=== PATIENT | female | born 1955 | race Caucasian/White ===

== ENCOUNTER 2023-12-24 11:47 | Emergency (ER) | payer MEDICARE, SELFPAY ==
[2023-12-24 11:51] VITALS: BP 131/62; PULSE 68; RESP 18; TEMP 36.6; O2SAT 99; BMI 24.1
--- NOTE | 2023-12-24 12:03 | DI.CT.S_ITS ---
PROCEDURE: CT CERVICAL SPINE WO CON INDICATIONS: fall/pain TECHNIQUE: Noncontrast 3 mm thick sections acquired from the skull base to the T4 level. Sagittal and coronal reformats were then constructed. For radiation dose reduction, the following was used: automated exposure control, adjustment of mA and/or kV according to patient size. COMPARISON: None. FINDINGS: Image quality: Excellent. Bones: No fractures or dislocations. Visualized superior ribs are intact. Soft tissues: Prevertebral soft tissues are normal in thickness. No paravertebral hematomas. No apical pneumothoraces. IMPRESSION: No displaced fracture or traumatic subluxation. Dictated by: Roslyn Arrieta M.D. on 12/24/2023 at 12:43 Approved by: Roslyn Arrieta M.D. on 12/24/2023 at 12:44
--- NOTE | 2023-12-24 12:03 | DI.CT.S_ITS ---
PROCEDURE: CT HEAD/BRAIN WO CON INDICATIONS: fall/pain TECHNIQUE: Noncontrast 4.5 mm thick angled axial sections acquired from the foramen magnum to the vertex, with coronal and sagittal reformats. For radiation dose reduction, the following was used: automated exposure control, adjustment of mA and/or kV according to patient size. COMPARISON: None. FINDINGS: Image quality: Diagnostic. CSF spaces: Basal cisterns are patent. No extra-axial fluid collections. Ventricles are normal in size and shape. Brain: No midline shift. No intracranial masses or hemorrhage. Garcia-white matter interface is normal. Skull and face: Calvarium and visualized facial bones are intact, without suspicious lesions. Sinuses: Visualized sinuses demonstrate small mucous retention cyst in the right maxillary sinus. IMPRESSION: No acute intracranial pathology. Dictated by: Roslyn Arrieta M.D. on 12/24/2023 at 12:42 Approved by: Roslyn Arrieta M.D. on 12/24/2023 at 12:43
--- NOTE | 2023-12-24 12:03 | DI.CT.S_ITS ---
PROCEDURE: CT FACIAL BONES WO CON INDICATIONS: fall/pain TECHNIQUE: Noncontrast 2.5 mm thick axial images acquired from the mandible through the frontal sinuses, with coronal and sagittal reformatting. For radiation dose reduction, the following was used: automated exposure control, adjustment of mA and/or kV according to patient size. COMPARISON: [facility], CT, CT HEAD/BRAIN WO CON, 12/24/2023, 12:17. FINDINGS: Image quality: Excellent. Bones and teeth: Orbital puckett are intact. Sinus puckett show no fracture or deformity. Nasal bones and septum are intact. Visualized portions of the mandible demonstrate no fractures or subluxation. Zygomatic arches are intact. Pterygoid plates are intact. Visualized portions of the skull base and auditory canals are intact. Sinuses: Paranasal sinuses are aerated, without fluid levels. No mucous retention cyst is present in the left maxillary sinus. Soft tissues: No edema, masses, or fluid collections. No enlarged lymph nodes. No soft tissue lacerations or debris. Vascular: Visualized vascular structures appear normal in the absence of contrast. Bony vascular foramina and canals are intact. IMPRESSION: No visualized fracture. Dictated by: Roslyn Arrieta M.D. on 12/24/2023 at 12:40 Approved by: Roslyn Arrieta M.D. on 12/24/2023 at 12:42
--- NOTE | 2023-12-24 12:06 | ED_ITS ---
HPI - Fall <Robin Leblanc PA-C - Last Filed: 12/24/23 13:54> General Chief Complaint: Fall Stated Complaint: Fall, head laceration, no blood thinners Time Seen by Provider: 12/24/23 12:03 History of Present Illness HPI Narrative: This is a 68-year-old female presenting to the emergency department due to a mechanical ground level fall. Not on blood thinners. States that she was walking in the dark when she tripped landing on her knees, wrists, hitting her head. She was unsure if she lost conscious but states she was ?out of it? for a few seconds. Tetanus is up-to-date. Has a wound to the forehead. Denies any nausea, vomiting, dizziness, speech changes. Also complaining of neck and lower back pain. History of left knee surgery 30 years ago. No other medical history. Related Data Allergies Allergy/AdvReac Type Severity Reaction Status Date / Time hydrochlorothiazide Allergy Rash Verified 12/24/23 12:20 hydroxychloroquine Allergy Verified 12/24/23 12:20 [From Plaquenil] lisinopril Allergy Swelling Verified 12/24/23 12:20 of Lip/Tongue/Throat meperidine [From Demerol] Allergy Vomiting Verified 12/24/23 12:20 oxycodone Allergy Vomiting Verified 12/24/23 12:20 Penicillins Allergy Verified 12/24/23 12:20 Review of Systems <Robin Leblanc PA-C - Last Filed: 12/24/23 13:54> Review of Systems Narrative: GENERAL: Denies chills, fatigue, malaise, fever, sweats. HEENT: Denies sinus pain, ear pain, sore throat, difficulty swallowing, dizziness. RESPIRATORY: Denies dyspnea, cough, wheezing, hemoptysis, sputum. CARDIOVASCULAR: Denies chest pain, palpitations, orthopnea, edema, GASTROINTESTINAL: Denies nausea, vomiting, abdominal pain, diarrhea, constipation, melena. : Denies dysuria, frequency, incontinence, hematuria, urinary retention. MUSCULOSKELETAL: Reports bilateral knee, bilateral wrist, right elbow, lower back, neck pain. SKIN: Denies rash, skin lesions, or other NEUROLOGIC: Denies weakness, headache, numbness, change in speech, confusion, seizures, incoordination. PSYCHIATRIC: No concerning psychosocial issues. 12 point review of systems is negative except for those stated above Patient History <Robin Leblanc PA-C - Last Filed: 12/24/23 13:54> Social History Smoking Status: Never smoker Smoking Status: Never smoker alcohol intake frequency: holidays/special occasions only Substance Use Type: does not use Exam <Robin Leblanc PA-C - Last Filed: 12/24/23 13:54> Narrative Exam Narrative: GENERAL: Well-developed patient, in mild distress. HEAD: Atraumatic. Normocephalic. EYES: Pupils equal round and reactive. Extraocular motions intact. No scleral icterus. No injection or drainage. ENT: Nose without bleeding, purulent drainage. Throat without erythema, tonsillar hypertrophy or exudate. Airway patent. NECK: Trachea midline. Some C-spine tenderness noted. EXTREMITIES: Mild tenderness to palpation to the bilateral knees, bilateral wrists, right elbow. NEURO: AOx3. Cranial nerves 2-12 intact SKIN: One approximately 5 cm long laceration the midline of the forehead. No active bleeding. Skin is well approximated. No foreign bodies or debris. 1 cm laceration perpendicular to that, no foreign bodies or debris. Back: Some tenderness to palpation to the lumbar paraspinals, no midline tenderness to palpation. Initial Vital Signs Initial Vital Signs: Vital Signs Temperature 98 F 12/24/23 11:51 Pulse Rate 68 12/24/23 11:51 Respiratory Rate 18 12/24/23 11:51 Blood Pressure 131/62 12/24/23 11:51 Pulse Oximetry 99 12/24/23 11:51 Oxygen Delivery Method Room Air 12/24/23 11:51 <Barbie Hatfield MD - Last Filed: 12/24/23 18:40> Initial Vital Signs Initial Vital Signs: Vital Signs Temperature 98 F 12/24/23 11:51 Pulse Rate 68 12/24/23 11:51 Respiratory Rate 18 12/24/23 11:51 Blood Pressure 131/62 12/24/23 11:51 Pulse Oximetry 99 12/24/23 11:51 Oxygen Delivery Method Room Air 12/24/23 11:51 Procedures <Robin Leblanc PA-C - Last Filed: 12/24/23 13:54> Laceration Repair Laceration 1: Time of procedure: 13:50 Site: other (Forehead ) Size (cm): 5 Description: linear Depth: simple, single layer Local Anesthetic: lidocaine 1% and with epi Amount of anesthesia used (mL): 5 Pre-repair: irrigated extensively Skin layer closed with: nylon Skin layer suture size: 6-0 Number of sutures: 6 Technique: simple, interrupted Laceration 2: Time of procedure: 13:51 Site: other (Forehead) Size (cm): 1 Description: linear Depth: simple, single layer Local Anesthetic: lidocaine 1% and with epi Amount of anesthesia used (mL): 1 Pre-repair: irrigated extensively Skin layer closed with: nylon Skin layer suture size: 6-0 Number of sutures: 2 Technique: simple, interrupted Course <Robin Leblanc PA-C - Last Filed: 12/24/23 13:54> Orders Ordered: ED Orders 12/24/23 12:03 CT cervical spine wo con Stat CT facial bones wo con Stat CT head/brain wo con Stat 12/24/23 12:04 XR elbow RT min 3V Stat XR wrist LT min 3V Stat XR wrist RT min 3V Stat 12/24/23 12:18 XR knee LT 3V Stat XR knee RT 3V Stat Discontinued Medications Acetaminophen (Acetaminophen 325 Mg Tablet) 975 mg PO NOW ONE Stop: 12/24/23 14:04 Last Admin: 12/24/23 14:07 Dose: 975 mg Documented By: JEYSON Lidocaine/Epinephrine (Lidocaine 1% W/Epi) 4 ml INJ INTRA-OP ONE Stop: 12/24/23 12:49 Last Admin: 12/24/23 12:58 Dose: 4 ml Documented By: JEYSON Vital Signs Vital signs: Vital Signs - 8 hr 12/24/23 11:51 12/24/23 14:14 Temperature 98 F Pulse Rate 68 60 Respiratory Rate 18 14 Blood Pressure 131/62 117/53 L Pulse Oximetry 99 100 Oxygen Delivery Method Room Air Room Air <Barbie Hatfield MD - Last Filed: 12/24/23 18:40> Orders Ordered: ED Orders 12/24/23 12:03 CT cervical spine wo con Stat CT facial bones wo con Stat CT head/brain wo con Stat 12/24/23 12:04 XR elbow RT min 3V Stat XR wrist LT min 3V Stat XR wrist RT min 3V Stat 12/24/23 12:18 XR knee LT 3V Stat XR knee RT 3V Stat Discontinued Medications Acetaminophen (Acetaminophen 325 Mg Tablet) 975 mg PO NOW ONE Stop: 12/24/23 14:04 Last Admin: 12/24/23 14:07 Dose: 975 mg Documented By: JEYSON Lidocaine/Epinephrine (Lidocaine 1% W/Epi) 4 ml INJ INTRA-OP ONE Stop: 12/24/23 12:49 Last Admin: 12/24/23 12:58 Dose: 4 ml Documented By: JEYSON Vital Signs Vital signs: Vital Signs - 8 hr 12/24/23 11:51 12/24/23 14:14 Temperature 98 F Pulse Rate 68 60 Respiratory Rate 18 14 Blood Pressure 131/62 117/53 L Pulse Oximetry 99 100 Oxygen Delivery Method Room Air Room Air MDM - Fall <Robin Leblanc PA-C - Last Filed: 12/24/23 13:54> Imaging Data CT scan - head: Radiologist's Impression: [address] [address] [address] Scan Report Signed Patient: Stephanie Carver MR#: [id number] : 1955 Acct:[id number] Age/Sex: 68 / F Date of Service: 12/24/23 Loc: ED Accession Number: [id number] Procedure: CT head/brain wo con Ordering Provider: Robin Leblanc P.A-C PROCEDURE: CT HEAD/BRAIN WO CON INDICATIONS: fall/pain TECHNIQUE: Noncontrast 4.5 mm thick angled axial sections acquired from the foramen magnum to the vertex, with coronal and sagittal reformats. For radiation dose reduction, the following was used: automated exposure control, adjustment of mA and/or kV according to patient size. COMPARISON: None. FINDINGS: Image quality: Diagnostic. CSF spaces: Basal cisterns are patent. No extra-axial fluid collections. Ventricles are normal in size and shape. Brain: No midline shift. No intracranial masses or hemorrhage. Garcia-white matter interface is normal. Skull and face: Calvarium and visualized facial bones are intact, without suspicious lesions. Sinuses: Visualized sinuses demonstrate small mucous retention cyst in the right maxillary sinus. IMPRESSION: No acute intracranial pathology. Dictated by: Roslyn Arrieta M.D. on 12/24/2023 at 12:42 Approved by: Roslyn Arrieta M.D. on 12/24/2023 at 12:[address]: Radiologist's Impression: [address] [address] [address] Scan Report Signed Patient: Stephanie Carver MR#: [id number] : 1955 Acct:[id number] Age/Sex: 68 / F Date of Service: 12/24/23 Loc: ED Accession Number: [id number] Procedure: CT facial bones wo con Ordering Provider: Robin Leblanc P.A-C PROCEDURE: CT FACIAL BONES WO CON INDICATIONS: fall/pain TECHNIQUE: Noncontrast 2.5 mm thick axial images acquired from the mandible through the frontal sinuses, with coronal and sagittal reformatting. For radiation dose reduction, the following was used: automated exposure control, adjustment of mA and/or kV according to patient size. COMPARISON: [facility], CT, CT HEAD/BRAIN WO CON, 12/24/2023, 12:17. FINDINGS: Image quality: Excellent. Bones and teeth: Orbital puckett are intact. Sinus puckett show no fracture or deformity. Nasal bones and septum are intact. Visualized portions of the mandible demonstrate no fractures or subluxation. Zygomatic arches are intact. Pterygoid plates are intact. Visualized portions of the skull base and auditory canals are intact. Sinuses: Paranasal sinuses are aerated, without fluid levels. No mucous retention cyst is present in the left maxillary sinus. Soft tissues: No edema, masses, or fluid collections. No enlarged lymph nodes. No soft tissue lacerations or debris. Vascular: Visualized vascular structures appear normal in the absence of contrast. Bony vascular foramina and canals are intact. IMPRESSION: No visualized fracture. Dictated by: Roslyn Arrieta M.D. on 12/24/2023 at 12:40 Approved by: Roslyn Arrieta M.D. on 12/24/2023 at 12:42 CT - cervical spine: Radiologist's Impression: [address] [address] [address] Scan Report Signed Patient: Stephanie Carver MR#: [id number] : 1955 Acct:[id number] Age/Sex: 68 / F Date of Service: 12/24/23 Loc: ED Accession Number: [id number] Procedure: CT cervical spine wo con Ordering Provider: Robin Leblanc P.A-C PROCEDURE: CT CERVICAL SPINE WO CON INDICATIONS: fall/pain TECHNIQUE: Noncontrast 3 mm thick sections acquired from the skull base to the T4 level. Sagittal and coronal reformats were then constructed. For radiation dose reduction, the following was used: automated exposure control, adjustment of mA and/or kV according to patient size. COMPARISON: None. FINDINGS: Image quality: Excellent. Bones: No fractures or dislocations. Visualized superior ribs are intact. Soft tissues: Prevertebral soft tissues are normal in thickness. No paravertebral hematomas. No apical pneumothoraces. IMPRESSION: No displaced fracture or traumatic subluxation. Dictated by: Roslyn Arrieta M.D. on 12/24/2023 at 12:43 Approved by: Roslyn Arrieta M.D. on 12/24/2023 at 12:44 Elbow XR : Radiologist's Impression: [address] [address] XRay Report Signed Patient: Stephanie Carver MR#: [id number] : 1955 Acct:[id number] Age/Sex: 68 / F Date of Service: 12/24/23 Loc: ED Accession Number: [id number] Procedure: XR elbow RT min 3V Ordering Provider: Robin Leblanc P.A-C PROCEDURE: XR ELBOW RT MIN 3V INDICATIONS: fall/pain TECHNIQUE: 3 views of the elbow were acquired. COMPARISON: None. FINDINGS: Bones: No fractures or dislocations. No suspicious bony lesions. Soft tissues: Minimal elbow joint effusion. No suspicious soft tissue calcifications. IMPRESSION: Minimal effusion. No visualized acute fracture or dislocation. However, if clinical concern and/or pain persist, short interval imaging followup in 7-10 days is recommended, as occult injury cannot be definitively excluded. Dictated by: Roslyn Arrieta M.D. on 12/24/2023 at 12:52 Approved by: Roslyn Arrieta M.D. on 12/24/2023 at 12:52 L knee XR : Radiologist's Impression: [address] [address] XRay Report Signed Patient: Stephanie Carver MR#: [id number] : 1955 Acct:[id number] Age/Sex: 68 / F Date of Service: 12/24/23 Loc: ED Accession Number: [id number] Procedure: XR knee LT 3V Ordering Provider: Robin Leblanc P.A-C PROCEDURE: XR KNEE LT 3V INDICATIONS: L knee pain TECHNIQUE: 3 views of the knee were acquired. COMPARISON: None. FINDINGS: Bones: No fractures or dislocations. No suspicious bony lesions. Tricompartmental arthritic change. Soft tissues: No joint effusion. No suspicious soft tissue calcifications. IMPRESSION: No visualized acute fracture or dislocation. However, if clinical concern and/or pain persist, short interval imaging followup in 7-10 days is recommended, as occult injury cannot be definitively excluded. Dictated by: Roslyn Arrieta M.D. on 12/24/2023 at 13:05 Approved by: Roslyn Arrieta M.D. on 12/24/2023 at 13:06 R knee XR: Radiologist's Impression: [address] [address] XRay Report Signed Patient: Stephanie Carver MR#: [id number] : 1955 Acct:[id number] Age/Sex: 68 / F Date of Service: 12/24/23 Loc: ED Accession Number: [id number] Procedure: XR knee RT 3V Ordering Provider: Robin Leblanc P.A-C PROCEDURE: XR KNEE RT 3V INDICATIONS: R knee pain TECHNIQUE: 3 views of the knee were acquired. COMPARISON: None. FINDINGS: Bones: No fractures or dislocations. No suspicious bony lesions. Soft tissues: Mild joint effusion. No suspicious soft tissue calcifications. IMPRESSION: Mild effusion. No visualized acute fracture or dislocation. However, if clinical concern and/or pain persist, short interval imaging followup in 7-10 days is recommended, as occult injury cannot be definitively excluded. Dictated by: Roslyn Arrieta M.D. on 12/24/2023 at 13:12 Approved by: Roslyn Arrieta M.D. on 12/24/2023 at 13:20 L wrist XR : Radiologist's Impression: [address] [address] XRay Report Signed Patient: Stephanie Carver MR#: [id number] : 1955 Acct:[id number] Age/Sex: 68 / F Date of Service: 12/24/23 Loc: ED Accession Number: [id number] Procedure: XR wrist LT min 3V Ordering Provider: Robin Leblanc P.A-C PROCEDURE: XR WRIST LT MIN 3V INDICATIONS: fall/pain TECHNIQUE: 4 views of the wrist were acquired. COMPARISON: None. FINDINGS: Bones: No fractures or dislocations. No suspicious bony lesions. Soft tissues: No suspicious soft tissue calcifications. IMPRESSION: No visualized acute fracture or dislocation. However, if clinical concern and/or pain persist, short interval imaging followup in 7-10 days is recommended, as occult injury cannot be definitively excluded. Dictated by: Roslyn Arrieta M.D. on 12/24/2023 at 13:20 Approved by: Roslyn Arrieta M.D. on 12/24/2023 at 13:35 R wrist XR : Radiologist's Impression: [place] [address] XRay Report Signed Patient: Stephanie Carver MR#: [id number] : 1955 Acct:[id number] Age/Sex: 68 / F Date of Service: 12/24/23 Loc: ED Accession Number: [id number] Procedure: XR wrist RT min 3V Ordering Provider: Robin Leblanc P.A-C PROCEDURE: XR WRIST RT MIN 3V INDICATIONS: fall/pain TECHNIQUE: 4 views of the wrist were acquired. COMPARISON: None. FINDINGS: Bones: No fractures or dislocations. No suspicious bony lesions. Soft tissues: No suspicious soft tissue calcifications. IMPRESSION: No visualized acute fracture or dislocation. However, if clinical concern and/or pain persist, short interval imaging followup in 7-10 days is recommended, as occult injury cannot be definitively excluded. Dictated by: Roslyn Arrieta M.D. on 12/24/2023 at 13:35 Approved by: Roslyn Arrieta M.D. on 12/24/2023 at 13:36 MDM Narrative Medical decision making narrative: ED course: This is a 68-year-old female presenting to the emergency department due to a mechanical ground level fall. States that she tripped over [place] moving hose [place] dock. Landed face 1st. Did not lose conscious. No neuro deficits on exam. CT head face and neck ordered which were all unremarkable. Multiple extremities ordered which showed no acute changes either. She did have 2 lacerations to her forehead which were closed without complications. Tetanus was up-to-date. CC: Head pain Complicating co-morbidities: History of MS with occasional foot drop Data collected from: Previous notes Medical records reviewed: Patient was not been to this emergency department in the past and no previous records to review. Differential considered, but not limited to: Fracture, intracranial bleed, soft tissue injury Exam documented above, pertinent findings include: Cranial nerves 2-12 intact, no lumbar tenderness to palpation midline, no x-ray ordered, some tenderness to palpation to extremities and x-rays ordered. Lab Test results independently reviewed as above. Pertinent findings: None obtained Imaging studies independently reviewed: All imaging negative for acute findings Scores Used: None MIPS Elements: None Consultations: None Treatments: Laceration repair Re-evaluations: None Discussion: Discussed plan with the patient was comfortable with the plan Diagnosis: Forehead laceration Disposition: see below, along with detailed discharge instructions that have been reviewed with patient as well as indications for ED re-evaluation and additional outpatient follow up Discharge Plan Departure Patient Disposition: Home Clinical Impression: Forehead laceration Activity Restrictions/Additional Instructions: Thank you for coming to the [facility] Emergency Department today. As we discussed all of your imaging was unremarkable. The x-rays we took of your right elbow, bilateral wrist, bilateral knees showed no fractures. The CT we did of your brain, neck, face showed no abnormalities either. Please follow up with the primary care provider for suture removal in 7-10 days. Please return to the emergency department if you develop any dizziness, slurred speech, nausea, vomiting, fevers, or any other concerning signs or symptoms. I hope you feel better soon. Please follow up with your primary care provider within a week if your symptoms continue. If you do not have a primary care provider please contact the [facility] Resource line at [phone]. They will ask some questions about your medical history and help you get set up with a provider in the community. Referrals: Doctor Moraes MD [Primary Care Provider] - Stand Alone Forms: Patient Portal/API ED Sign-out <Barbie Hatfield MD - Last Filed: 12/24/23 18:40> Cosign ED Attending [place] Attestation: I was immediately available in the department for consultation throughout this patient's visit. Barbie Hatfield MD
--- NOTE | 2023-12-24 12:18 | DI.RAD.S_ITS ---
PROCEDURE: XR KNEE RT 3V INDICATIONS: R knee pain TECHNIQUE: 3 views of the knee were acquired. COMPARISON: None. FINDINGS: Bones: No fractures or dislocations. No suspicious bony lesions. Soft tissues: Mild joint effusion. No suspicious soft tissue calcifications. IMPRESSION: Mild effusion. No visualized acute fracture or dislocation. However, if clinical concern and/or pain persist, short interval imaging followup in 7-10 days is recommended, as occult injury cannot be definitively excluded. Dictated by: Roslyn Arrieta M.D. on 12/24/2023 at 13:12 Approved by: Roslyn Arrieta M.D. on 12/24/2023 at 13:20
--- NOTE | 2023-12-24 12:18 | DI.RAD.S_ITS ---
PROCEDURE: XR KNEE LT 3V INDICATIONS: L knee pain TECHNIQUE: 3 views of the knee were acquired. COMPARISON: None. FINDINGS: Bones: No fractures or dislocations. No suspicious bony lesions. Tricompartmental arthritic change. Soft tissues: No joint effusion. No suspicious soft tissue calcifications. IMPRESSION: No visualized acute fracture or dislocation. However, if clinical concern and/or pain persist, short interval imaging followup in 7-10 days is recommended, as occult injury cannot be definitively excluded. Dictated by: Roslyn Arrieta M.D. on 12/24/2023 at 13:05 Approved by: Roslyn Arrieta M.D. on 12/24/2023 at 13:06
[2023-12-24] MEDS: LIDOCAINE 1% W/EPI 4 ML INJ (12:58)
--- NOTE | 2023-12-24 13:06 | PC.NURSE ---
patients wound was irrigated with NS and she tolerated it well. No debris to note or bioburden visualized in the wound. The laceration is deep but hemostatic. Tetanus is UTD
[2023-12-24] MEDS: ACETAMINOPHEN 325 MG TABLET 975 MG PO (14:07)
[2023-12-24 14:14] VITALS: BP 117/53; PULSE 60; RESP 14; O2SAT 100
== END 2023-12-24 14:15 | disposition home or self-care (01) ==
PROVIDERS: Emergency Provider Physician Assistant Medical
DX: S01.81XA Laceration without foreign body of other part of head, initial encounter (principal); M54.2 Cervicalgia; M54.50 Low back pain, unspecified; W01.0XXA Fall on same level from slipping, tripping and stumbling without subsequent striking against object, initial encounter
CPT/HCPCS: 12014; 70450; 70486; 72125; 73080; 73110; 73562; 99284